=== PATIENT | male | born 1930 | race Caucasian/White ===

== ENCOUNTER 2020-01-12 10:08 | Outpatient (CLI) | payer MEDICARE ==
[2020-01-12 10:39] LABS: INR-International Normal Ratio 2.8; Prothrombin Time 29.1 SEC (12.0-14.7)
== END 2020-01-12 10:09 | disposition home or self-care (01) ==
LOC: MADLABBHPM 10:08
PROVIDERS: ATTEND Family Medicine
DX: Z51.81 Encounter for therapeutic drug level monitoring (principal); I48.91 Unspecified atrial fibrillation; Z79.01 Long term (current) use of anticoagulants
CPT/HCPCS: 36415; 85610

== ENCOUNTER 2020-01-27 10:09 | Outpatient (CLI) | payer MEDICARE ==
[2020-01-27 10:36] LABS: INR-International Normal Ratio 2.1; Prothrombin Time 23.5 sec (12.0-14.7)
[2020-01-27 10:44] LABS: Anion Gap 11 mmol/L (10-20); BUN (Urea Nitrogen) 28 mg/dL (8.4-25.7); Calc. Creatinine Clearance 0 mL/min (70-130); Calcium 8.5 mg/dL (7.8-10.44); Carbon Dioxide 28 mmol/L (23-31); Chloride 108 mmol/L (98-107); Estimated GFR-MDRD 45; Glucose 107 mg/dL (83-110); Potassium 4.4 mmol/L (3.5-5.1); Sodium 143 mmol/L (136-145)
== END 2020-01-27 10:10 | disposition home or self-care (01) ==
LOC: MADLAB 10:09 → EDUNIT# 10:09 → MADLAB 10:10
PROVIDERS: ATTEND Family Medicine
DX: Z51.81 Encounter for therapeutic drug level monitoring (principal); I48.91 Unspecified atrial fibrillation; I25.10 Atherosclerotic heart disease of native coronary artery without angina pectoris; Z79.01 Long term (current) use of anticoagulants
CPT/HCPCS: 36415; 80048; 85610

== ENCOUNTER 2020-01-30 15:07 | Emergency (ER) | payer MEDICARE | END 2020-01-30 15:50 | disposition home or self-care (01) | LOC: MADERS 15:07 | DX: S51.812A Laceration without foreign body of left forearm, initial encounter (principal); S70.11XA Contusion of right thigh, initial encounter; I25.10 Atherosclerotic heart disease of native coronary artery without angina pectoris; I48.91 Unspecified atrial fibrillation; K21.9 Gastro-esophageal reflux disease without esophagitis; I10 Essential (primary) hypertension; E78.00 Pure hypercholesterolemia, unspecified; E78.5 Hyperlipidemia, unspecified; W01.0XXA Fall on same level from slipping, tripping and stumbling without subsequent striking against object, initial encounter | CPT/HCPCS: 99283 ==